=== PATIENT | female | born 1995 | race American Indian/Alaskan Native ===

== ENCOUNTER 2022-01-12 12:12 | Emergency (ER) | payer SELFPAY ==
[2022-01-12 13:49] VITALS: BP 107/77
--- NOTE | 2022-01-12 14:02 | Emergency Department Report ---
ED General Adult HPI - General Chief complaint: Extremity Problem,Nontraumatic Stated complaint: LEGS AND HANDS SWOLLEN Time Seen by Provider: 01/12/22 13:58 Source: patient Mode of arrival: Ambulatory Limitations: No Limitations - History of Present Illness Initial comments: 18-year-old female no significant past medical history reports to the ER with complaints of bilateral lower extremity swelling and bilateral hand intermittently for about 1 week. Patient reports that her swelling has since improved since last night. 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 No other acute symptoms reported. Patient has no cardiac history. No complaints of shortness of breath, no chest pain reported no weakness. Severity scale (0 -10): 0 - Related Data Allergies Allergy/AdvReac Type Severity Reaction Status Date / Time No Known Allergies Allergy Unverified 01/12/22 13:49 ED Review of Systems ROS: Stated complaint: LEGS AND HANDS SWOLLEN Other details as noted in HPI Constitutional: denies: chills, fever Eyes: denies: eye pain, eye discharge, vision change ENT: denies: ear pain, throat pain Respiratory: denies: cough, shortness of breath, wheezing Cardiovascular: denies: chest pain, palpitations Endocrine: no symptoms reported Gastrointestinal: denies: abdominal pain, nausea, diarrhea Genitourinary: denies: urgency, dysuria, discharge Musculoskeletal: other (Bilateral lower extremity swelling. Bilateral hand swelling.). denies: back pain, joint swelling, arthralgia Skin: denies: rash, lesions Neurological: denies: headache, weakness, paresthesias Psychiatric: denies: anxiety, depression Hematological/Lymphatic: denies: easy bleeding, easy bruising ED Past Medical Hx - Past Medical History Previous Medical History?: No - Surgical History Past Surgical History?: No ED Physical Exam - General Limitations: No Limitations General appearance: alert, in no apparent distress - Head Head exam: Present: atraumatic, normocephalic - Eye Eye exam: Present: normal appearance - ENT ENT exam: Present: mucous membranes moist - Neck Neck exam: Present: normal inspection - Respiratory Respiratory exam: Present: normal lung sounds bilaterally. Absent: respiratory distress - Cardiovascular Cardiovascular Exam: Present: regular rate, normal rhythm. Absent: systolic murmur, diastolic murmur, rubs, gallop - GI/Abdominal GI/Abdominal exam: Present: soft, normal bowel sounds - Extremities Exam Extremities exam: Present: normal inspection, other (No swelling is noted to bilateral lower extremities and no swelling is noted to the upper hands and wrist area bilaterally.) - Back Exam Back exam: Present: normal inspection - Neurological Exam Neurological exam: Present: alert, oriented X3 - Psychiatric Psychiatric exam: Present: normal affect, normal mood - Skin Skin exam: Present: warm, dry, intact, normal color. Absent: rash ED Course Vital Signs 01/12/22 01/12/22 13:46 14:17 Temperature 98 F 98.0 F Pulse Rate 55 L 55 L Respiratory 16 16 Rate Blood Pressure 107/77 Blood Pressure 107/77 [Left] O2 Sat by Pulse 99 99 Oximetry ED Medical Decision Making - Medical Decision Making 26-year-old female no significant past medical history reports to the ER with complaints of bilateral leg swelling and hand swelling intermittently for 3 to 4 days. Patient denies any cardiac symptoms. No long drives or recent flights. Patient reports swelling has decreased since yesterday. After she propped her legs up and rested at home. Patient reports she does stand for long peers of time at work. Patient reports no other acute signs or symptoms at this moment. On physical exam no acute symptoms noted. No swelling is noted or seen in lower extremities as well as no swelling is noted in bilateral hands. Patient to follow-up with outpatient resources to primary care services. Patient agrees with plan of care and verbalized understanding. Vital Signs 01/12/22 01/12/22 13:46 14:17 Temperature 98 F 98.0 F Pulse Rate 55 L 55 L Respiratory 16 16 Rate Blood Pressure 107/77 Blood Pressure 107/77 [Left] O2 Sat by Pulse 99 99 Oximetry Critical care attestation.: If time is entered above; I have spent that time in minutes in the direct care of this critically ill patient, excluding procedure time. ED Disposition Clinical Impression: Encounter for medical screening examination Disposition: 01 HOME / SELF CARE / HOMELESS Is pt being admited?: No Condition: Stable Referrals: [facility] [Outside] - 3-[address] [facility] [Outside] - 3-5 Days [facility] [Outside] - 3-5 Days
== END 2022-01-12 14:19 | disposition home or self-care (01) ==
LOC: ED 12:12
DX: M79.662 Pain in left lower leg (principal); M79.661 Pain in right lower leg; M79.642 Pain in left hand; M79.641 Pain in right hand; Z00.00 Encounter for general adult medical examination without abnormal findings
CPT/HCPCS: 99282